=== PATIENT | female | born 1995 | race Asian ===

== ENCOUNTER 2016-09-27 15:40 | Inpatient (IN) | payer MEDICAID ==
[~2016-09-27] VITALS: Ht 162.6 cm; Wt 54.4 kg
[2016-09-27] MEDS ORDERED: DICLOXACILLIN500 M1 ORAL (16:05)
[2016-09-27 16:15] VITALS: BP 106/72
[2016-09-27 17:32] LABS: APPEARANCE,URINE CLEAR; BASOPHILS % (AUTO) 0.8 % (0.0-2.0); KETONES,URINE NEGATIVE (NEGATIVE); LEUKOCYTE ESTERASE ,URINE 1+ (NEGATIVE); LYMPHOCYTES % (AUTO) 16.7 % (20.0-45.0); MEAN CORPUSCULAR HEMOGLOBIN 30.3 PG (27.0-31.0); MEAN CORPUSCULAR HGB CONC 32.3 G/DL (32.0-36.0); MEAN CORPUSCULAR VOLUME 94 FL (80-99); MEAN PLATELET VOLUME 6.6 FL (6.5-10.1); NEUTROPHILS % (AUTO) 73.5 % (45.0-75.0); NITRITE,URINE NEGATIVE (NEGATIVE); PH,URINE 8 (4.5-8.0); PLATELET COUNT 294 K/UL (150-450); PROTEIN,URINE NEGATIVE (NEGATIVE); RED BLOOD COUNT 4.06 M/UL (4.20-5.40); RED CELL DISTRIBUTION WIDTH 11.9 % (11.6-14.8); UROBILINOGEN,URINE NORMAL MG/DL (0.0-1.0); WHITE BLOOD COUNT 8.5 K/UL (4.8-10.8)
[2016-09-27 17:39] LABS: BACTERIA,URINE FEW /HPF; RBC,URINE 0-2 /HPF (0 - 2); SQUAMOUS EPITHELIAL CELL,UR MODERATE /LPF (NONE/OCC)
[2016-09-27 17:47] LABS: ALANINE AMINOTRANSFERASE 22 U/L (3-33); ANION GAP 13 (5-15); ASPARTATE AMINO TRANSFERASE 21 U/L (5-40); CALCIUM 8.5 mg/dL (8.6-10.2); CARBON DIOXIDE 25 mEQ/L (20-30); CHLORIDE 97 mEQ/L (98-107); CREATININE 0.6 mg/dL (0.5-0.9); GLOMERULAR FILTRATION RATE > 60 mL/min (>60); HEMOLYSIS 12; POTASSIUM 3.7 mEQ/L (3.4-4.9); SODIUM 135 mEQ/L (135-145); TOTAL PROTEIN 6.8 g/dL (6.6-8.7)
[2016-09-27 18:15] VITALS: BP 113/71
--- NOTE | 2016-09-27 19:52 | History and Physical ---
History of Present Illness General Date patient seen: Sep 27, 2016 Time patient seen: 19:45 Reason for Hospitalization: Skin Rash/Abscess Present Illness HPI Pt is a 21 yo F with no significant pmh who p/w worsening R breast erythema and pain. Pt had a breast augmentation done 5 1/2 months ago, and was lost to f/u. Pt recently went to [place] and was prescribed po abx with no improvement. Sx started with erythema and then she developed swelling, and pain and purulent discharge from incision site of breast augmentation. no nipple discharge, f/c, cp, sob, n/v/d. No but bites/trauma. pt is 14 weeks and reports that she has scheduled an for this pt claims that she has significant amount of vaginal discharge; non malodorous, white and thick; has had 3 bouts of BV, last treated 3 months ago. pt also reports sob and wheezing. Allergies: Coded Allergies: No Known Allergies (Unverified , 09/27/16) Medication History Scheduled Dicloxacillin Sodium (Dicloxacillin Sodium), 500 MG ORAL EVERY 6 HOURS, ( Reported) Patient History Healthcare decision maker Resuscitation status Advanced Directive on File Past Medical/Surgical History Past Medical/Surgical History: (1) H/O breast augmentation Family History Family History: Patient reports no known family medical history. Social History Social History: (1) No significant social history Review of Systems All Other Systems: negative except mentioned in HPI Physical Exam General Appearance: no apparent distress, alert HEENT: normocephalic, atraumatic, anicteric, mucous membranes moist, PERRL, EOMI, pharynx normal, no JVD Neck: non-tender, supple Respiratory/Chest: lungs clear, normal breath sounds, no respiratory distress, no accessory muscle use Breasts: other - R breast erythema and ttp Cardiovascular/Chest: normal peripheral pulses, normal rate, regular rhythm Abdomen: normal bowel sounds, soft, no mass, other - RLQ TTP Extremities: non-tender, normal inspection Skin Exam: warm/dry 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, no motor/sensory deficits, alert Musculoskeletal: normal muscle bulk Last 24 Hour Vital Signs Date Time Temp Pulse Resp B/P Pulse Ox O2 Delivery O2 Flow Rate FiO2 09/27/16 19:02 98.2 81 16 113/71 100 Room Air 09/27/16 18:15 81 16 113/71 100 Room Air 09/27/16 16:15 16 106/72 100 Room Air 09/27/16 16:05 98.2 86 16 106/72 100 Room Air Laboratory Tests Test 09/27/16 17:20 White Blood Count 8.5 K/UL (4.8-10.8) Red Blood Count 4.06 M/UL (4.20-5.40) L Hemoglobin 12.3 G/DL (12.0-16.0) Hematocrit 38.0 % (37.0-47.0) Mean Corpuscular Volume 94 FL (80-99) Mean Corpuscular Hemoglobin 30.3 PG (27.0-31.0) Mean Corpuscular Hemoglobin Concent 32.3 G/DL (32.0-36.0) Red Cell Distribution Width 11.9 % (11.6-14.8) Platelet Count 294 K/UL (150-450) Mean Platelet Volume 6.6 FL (6.5-10.1) Neutrophils (%) (Auto) 73.5 % (45.0-75.0) Lymphocytes (%) (Auto) 16.7 % (20.0-45.0) L Monocytes (%) (Auto) 8.0 % (1.0-10.0) Eosinophils (%) (Auto) 1.0 % (0.0-3.0) Basophils (%) (Auto) 0.8 % (0.0-2.0) Urine Color Pale yellow Urine Appearance Clear Urine pH 8 (4.5-8.0) Urine Specific [place] 1.015 (1.005-1.035) Urine Protein Negative (NEGATIVE) Urine Glucose (UA) Negative (NEGATIVE) Urine Ketones Negative (NEGATIVE) Urine Occult Blood Negative (NEGATIVE) Urine Nitrite Negative (NEGATIVE) Urine Bilirubin Negative (NEGATIVE) Urine Urobilinogen Normal MG/DL (0.0-1.0) Urine Leukocyte Esterase 1+ (NEGATIVE) H Urine RBC 0-2 /HPF (0 - 2) Urine WBC 2-4 /HPF (0 - 2) Urine Squamous Epithelial Cells Moderate /LPF (NONE/OCC) H Urine Bacteria Few /HPF (NONE) Urine HCG, Qualitative Positive Sodium Level 135 mEQ/L (135-145) Potassium Level 3.7 mEQ/L (3.4-4.9) Chloride Level 97 mEQ/L (98-107) L Carbon Dioxide Level 25 mEQ/L (20-30) Anion Gap 13 (5-15) Blood Urea Nitrogen 9 mg/dL (7-23) Creatinine 0.6 mg/dL (0.5-0.9) Estimat Glomerular Filtration Rate > 60 mL/min (>60) Glucose Level 91 mg/dL (74-106) Lactic Acid Level 0.60 mmol/L (0.66-2.22) L Calcium Level 8.5 mg/dL (8.6-10.2) L Total Bilirubin < 0.2 mg/dL (0.0-1.2) Aspartate Amino Transf (AST/SGOT) 21 U/L (5-40) Alanine Aminotransferase (ALT/SGPT) 22 U/L (3-33) Alkaline Phosphatase 65 U/L (35-104) Total Protein 6.8 g/dL (6.6-8.7) Albumin 3.5 g/dL (3.5-5.2) Globulin 3.3 g/dL Albumin/Globulin Ratio 1.0 (1.0-2.7) Height (Feet): 5 Height (Inches): 4.00 Weight (Pounds): 120 Medications Current Medications Medications (Trade) Dose Ordered Sig/Samra Route PRN Reason Start Time Stop Time Status Last Admin Dose Admin Acetaminophen (Tylenol) 650 mg Q4H PRN ORAL Mild Pain (Pain Scale 1-3) 09/27/16 19:30 10/27/16 19:29 Acetaminophen (Tylenol) 650 mg Q4H PRN ORAL fever 09/27/16 19:30 10/27/16 19:29 Dextrose (Dextrose 50%) STAT PRN IV Hypoglycemia 09/27/16 19:30 10/27/16 19:29 Assessment/Plan Problem List: (1) Abscess of right breast ICD Codes: N61.1 - Abscess of the breast and nipple SNOMED: 52908784 (2) H/O breast augmentation ICD Codes: Z98.82 - Breast implant status SNOMED: 07179534, 175272753 (3) ICD Codes: Z33.1 - state, incidental SNOMED: 87361427 Qualifiers: Qualified Codes: Z3A.14 - 14 weeks gestation of Status: progressing Assessment/Plan admit to med surg c/s ID start pt on Clindamycin IV daily dressing changes breast us pelvic u/s albuterol prn Sonal Larose M.D. Sep 27, 2016 19:52
[2016-09-27 20:00] VITALS: BP 110/74
[2016-09-27 20:04] VITALS: BP 107/66
[2016-09-27] MEDS ORDERED: Albuterol 90mcg Inhaler 8gm INH PRN (20:30)
[2016-09-27] MEDS: Clindamycin 600mg 50 ML IV SCH (22:03)
[2016-09-28] VITALS: BP 99/59
--- NOTE | 2016-09-28 00:04 | Emergency Room Report ---
History of Present Illness General Chief Complaint: Skin Rash/Abscess Source: Patient Present Illness HPI 21 YO Pt. presents to the ED sent by plastic surgeon with c/o pain, swelling, and erythema of the right breast about recent surgical incision for breast augmentation. She reports discharge, and increased temperature. Pt states her symptoms have progressed over the course of a week and a half. and was rx'd dicloxacillin with no improvement from oral medications. Denies fevers, reports chills. Pt. states breast augmentation surgery was performed 5.5 months ago. PT reports drainage from the incision site. Pt. states prior to symptoms incision site appeared healed. pt. denies recent trauma to the right breast, denies palpable lymph nodes. Denies CP, Palpitations, LOC, AMS, dizziness, Changes in Vision, Sensation, paresthesias, or a sudden severe headache. Pt states she is three weeks , however has appointment for this week. Allergies: Coded Allergies: No Known Allergies (Unverified , 09/27/16) Patient History Past Medical History: see triage record Past Surgical History: none Pertinent Family History: none Now: No - 3 months : 1 Immunizations: UTD Reviewed Nursing Documentation: PMH: Agreed, PSxH: Agreed Nursing Documentation-PMH Past Medical History: No Stated History Hx Cardiac Problems: No Hx Cancer: No Hx Gastrointestinal Problems: No Hx Neurological Problems: No Hx Neurologic Surgery: No Hx Brain Shunt: No Review of Systems All Other Systems: negative except mentioned in HPI Physical Exam Vital Signs Date Time Temp Pulse Resp B/P Pulse Ox O2 Delivery O2 Flow Rate FiO2 09/27/16 16:05 98.2 86 16 106/72 100 Room Air Sp02 EP Interpretation: reviewed, normal General Appearance: no apparent distress, alert, GCS 15, non-toxic Head: normocephalic, atraumatic Eyes: bilateral eye PERRL, bilateral eye normal inspection ENT: hearing grossly normal, normal pharynx, no angioedema, normal voice Neck: full range of motion, supple/symm/no masses Respiratory: chest non-tender, lungs clear, normal breath sounds, speaking full sentences Cardiovascular #1: regular rate, rhythm, no edema Gastrointestinal: non tender, soft, no guarding, no rebound Rectal: deferred Genitourinary: normal inspection, no CVA tenderness Musculoskeletal: back normal, gait/station normal, normal range of motion, no calf tenderness, tender - significant TTp to the right breast mainly about the nipple. Neurologic: alert, oriented x3, responsive, motor strength/tone normal, sensory intact, speech normal Psychiatric: judgement/insight normal, memory normal, mood/affect normal, no suicidal/homicidal ideation Skin: normal color, no rash, warm/dry, well hydrated, other - erythema, TTp, discharge noted from the incision site of the right nipple, surrounding erythema and increased temperature to palpation noted, no LAD. Lymphatic: no adenopathy Medical Decision Making PA Attestation Dr. Miles is my supervising Physician whom patient management has been discussed with. Diagnostic Impression: Primary Impression: Rash and other nonspecific skin eruption Additional Impression: Cellulitis of breast ER Course Pt. presents to the ED c/o pain, swelling, and erythema of the right breast about recent surgical incision for breast augmentation. She reports discharge, and increased temperature. Ddx considered but are not limited to cellulitis, breast abscess, sepsis, dehiscence. Vital signs: are WNL, pt. is afebrile H&PE are most consistent with post surgical cellulitis, with possible right breast abscess. ORDERS: -CBC -CMP -lactic acid: -Blood Cultures x 2 -EKG: ED INTERVENTIONS: -1 gram Rocephin IV DISPOSITION: at this time pt. will be admitted to Dr. Nj for cellultis possible breast abscess. Dr. Nj agreed to admit the pt. and to continue pt. care management. Labs Test 09/27/16 17:20 White Blood Count 8.5 K/UL (4.8-10.8) Red Blood Count 4.06 M/UL (4.20-5.40) Hemoglobin 12.3 G/DL (12.0-16.0) Hematocrit 38.0 % (37.0-47.0) Mean Corpuscular Volume 94 FL (80-99) Mean Corpuscular Hemoglobin 30.3 PG (27.0-31.0) Mean Corpuscular Hemoglobin Concent 32.3 G/DL (32.0-36.0) Red Cell Distribution Width 11.9 % (11.6-14.8) Platelet Count 294 K/UL (150-450) Mean Platelet Volume 6.6 FL (6.5-10.1) Neutrophils (%) (Auto) 73.5 % (45.0-75.0) Lymphocytes (%) (Auto) 16.7 % (20.0-45.0) Monocytes (%) (Auto) 8.0 % (1.0-10.0) Eosinophils (%) (Auto) 1.0 % (0.0-3.0) Basophils (%) (Auto) 0.8 % (0.0-2.0) Urine Color Pale yellow Urine Appearance Clear Urine pH 8 (4.5-8.0) Urine Specific [place] 1.015 (1.005-1.035) Urine Protein Negative (NEGATIVE) Urine Glucose (UA) Negative (NEGATIVE) Urine Ketones Negative (NEGATIVE) Urine Occult Blood Negative (NEGATIVE) Urine Nitrite Negative (NEGATIVE) Urine Bilirubin Negative (NEGATIVE) Urine Urobilinogen Normal MG/DL (0.0-1.0) Urine Leukocyte Esterase 1+ (NEGATIVE) Urine RBC 0-2 /HPF (0 - 2) Urine WBC 2-4 /HPF (0 - 2) Urine Squamous Epithelial Cells Moderate /LPF (NONE/OCC) Urine Bacteria Few /HPF (NONE) Urine HCG, Qualitative Positive Sodium Level 135 mEQ/L (135-145) Potassium Level 3.7 mEQ/L (3.4-4.9) Chloride Level 97 mEQ/L (98-107) Carbon Dioxide Level 25 mEQ/L (20-30) Anion Gap 13 (5-15) Blood Urea Nitrogen 9 mg/dL (7-23) Creatinine 0.6 mg/dL (0.5-0.9) Estimat Glomerular Filtration Rate > 60 mL/min (>60) Glucose Level 91 mg/dL (74-106) Lactic Acid Level 0.60 mmol/L (0.66-2.22) Calcium Level 8.5 mg/dL (8.6-10.2) Total Bilirubin < 0.2 mg/dL (0.0-1.2) Aspartate Amino Transf (AST/SGOT) 21 U/L (5-40) Alanine Aminotransferase (ALT/SGPT) 22 U/L (3-33) Alkaline Phosphatase 65 U/L (35-104) Total Protein 6.8 g/dL (6.6-8.7) Albumin 3.5 g/dL (3.5-5.2) Globulin 3.3 g/dL Albumin/Globulin Ratio 1.0 (1.0-2.7) Last Vital Signs Date Time Temp Pulse Resp B/P Pulse Ox O2 Delivery O2 Flow Rate FiO2 09/27/16 20:04 97.9 71 20 107/66 99 Room Air Disposition: ADMITTED INPATIENT Condition: Stable Referrals: NOT CHOSEN IPA/,REFERRING (PCP) Sarita Fontana Sep 28, 2016 00:04
[2016-09-28 04:00] VITALS: BP 92/53
[2016-09-28] MEDS: Clindamycin 600mg 50 ML IV SCH ×4 (05:25→23:51)
[2016-09-28 07:30] LABS: BASOPHILS % (AUTO) 0.7 % (0.0-2.0); EOSINOPHILS % (AUTO) 1.7 % (0.0-3.0); MEAN CORPUSCULAR HEMOGLOBIN 30.4 PG (27.0-31.0); MEAN CORPUSCULAR HGB CONC 31.9 G/DL (32.0-36.0); MEAN CORPUSCULAR VOLUME 95 FL (80-99); MEAN PLATELET VOLUME 6.6 FL (6.5-10.1); MONOCYTES % (AUTO) 8.4 % (1.0-10.0); NEUTROPHILS % (AUTO) 59.2 % (45.0-75.0); PLATELET COUNT 303 K/UL (150-450); RED BLOOD COUNT 3.81 M/UL (4.20-5.40); RED CELL DISTRIBUTION WIDTH 11.7 % (11.6-14.8); WHITE BLOOD COUNT 6.7 K/UL (4.8-10.8)
[2016-09-28 08:00] VITALS: BP 107/56
[2016-09-28 08:12] LABS: ANION GAP 14 (5-15); CALCIUM 8.5 mg/dL (8.6-10.2); CARBON DIOXIDE 24 mEQ/L (20-30); CHLORIDE 100 mEQ/L (98-107); CREATININE 0.6 mg/dL (0.5-0.9); GLOMERULAR FILTRATION RATE > 60 mL/min (>60); HEMOLYSIS 3; POTASSIUM 4.1 mEQ/L (3.4-4.9); SODIUM 138 mEQ/L (135-145)
--- NOTE | 2016-09-28 10:38 | General Progress Note ---
Subjective Date patient seen: Sep 28, 2016 Time patient seen: 10:36 ROS Limited/Unobtainable: No Allergies: Coded Allergies: No Known Allergies (Unverified , 09/27/16) Subjective minimal pain, good appitite Objective Last 24 Hour Vital Signs Date Time Temp Pulse Resp B/P Pulse Ox O2 Delivery O2 Flow Rate FiO2 09/28/16 04:00 97.5 79 20 92/53 98 Room Air 09/28/16 00:00 97.0 75 19 99/59 99 Room Air 09/27/16 20:04 97.9 71 20 107/66 99 Room Air 09/27/16 20:00 98.2 84 20 110/74 99 Room Air 09/27/16 19:02 98.2 81 16 113/71 100 Room Air 09/27/16 18:15 81 16 113/71 100 Room Air 09/27/16 16:15 16 106/72 100 Room Air 09/27/16 16:05 98.2 86 16 106/72 100 Room Air Intake and Output 09/27/16 09/28/16 19:00 07:00 Intake Total 0 ml 1070 ml Balance 0 ml 1070 ml Intake Oral 0 ml 920 ml IV Total 150 ml # Voids 3 Laboratory Tests 09/27/16 17:20: White Blood Count 8.5, Red Blood Count 4.06L, Hemoglobin 12.3, Hematocrit 38.0, Mean Corpuscular Volume 94, Mean Corpuscular Hemoglobin 30.3, Mean Corpuscular Hemoglobin Concent 32.3, Red Cell Distribution Width 11.9, Platelet Count 294, Mean Platelet Volume 6.6, Neutrophils (%) (Auto) 73.5, Lymphocytes (%) (Auto) 16.7L, Monocytes (%) (Auto) 8.0, Eosinophils (%) (Auto) 1.0, Basophils (%) (Auto ) 0.8, Urine Color Pale yellow, Urine Appearance Clear, Urine pH 8, Urine Specific [place] 1.015, Urine Protein Negative, Urine Glucose (UA) Negative, Urine Ketones Negative, Urine Occult Blood Negative, Urine Nitrite Negative, Urine Bilirubin Negative, Urine Urobilinogen Normal, Urine Leukocyte Esterase 1+ H, Urine RBC 0-2, Urine WBC 2-4, Urine Squamous Epithelial Cells ModerateH, Urine Bacteria Few, Urine HCG, Qualitative Positive, Sodium Level 135, Potassium Level 3.7, Chloride Level 97L, Carbon Dioxide Level 25, Anion Gap 13, Blood Urea Nitrogen 9, Creatinine 0.6, Estimat Glomerular Filtration Rate > 60, Glucose Level 91, Lactic Acid Level 0.60L, Calcium Level 8.5L, Total Bilirubin < 0.2, Aspartate Amino Transf (AST/SGOT) 21, Alanine Aminotransferase (ALT/SGPT ) 22, Alkaline Phosphatase 65, Total Protein 6.8, Albumin 3.5, Globulin 3.3, Albumin/Globulin Ratio 1.0 09/28/16 06:25: White Blood Count 6.7, Red Blood Count 3.81L, Hemoglobin 11.6L, Hematocrit 36.3L , Mean Corpuscular Volume 95, Mean Corpuscular Hemoglobin 30.4, Mean Corpuscular Hemoglobin Concent 31.9L, Red Cell Distribution Width 11.7, Platelet Count 303, Mean Platelet Volume 6.6, Neutrophils (%) (Auto) 59.2, Lymphocytes (%) (Auto) 30.0, Monocytes (%) (Auto) 8.4, Eosinophils (%) (Auto) 1.7, Basophils (%) (Auto) 0.7, Sodium Level 138, Potassium Level 4.1, Chloride Level 100, Carbon Dioxide Level 24, Anion Gap 14, Blood Urea Nitrogen 7, Creatinine 0.6, Estimat Glomerular Filtration Rate > 60, Glucose Level 75, Calcium Level 8.5L Height (Feet): 5 Height (Inches): 4.00 Weight (Pounds): 120 Objective right breast still with erythema. minimal seropurulent drainage. packing in place. Implant not exposed GIOVANA BRANDT Sep 28, 2016 10:38
[2016-09-28 12:00] VITALS: BP 110/60
--- NOTE | 2016-09-28 12:33 | Diagnostic Imaging Report ---
Indications: Right breast swelling and open wound Technique: Real-time grayscale and color Doppler imaging of right breast Findings: Comparison: None There is a well-circumscribed ovoid area of heterogeneously decreased echogenicity subjacent to skin changes described, measuring approximately 3 x 1.5 cm. This area demonstrates moderate vascularity. No discrete mass or fluid collection identified. Impression: 3 cm ovoid focus of edema and increased vascularity without obvious discrete hematoma or abscess, subjacent to area of clinical concern.
--- NOTE | 2016-09-28 14:54 | Diagnostic Imaging Report ---
Indication:. Vaginal bleeding pain Technique: Grayscale and duplex Doppler imaging of the pelvis performed utilizing a transabdominal scan and endovaginal scan. Comparison: None Findings: Single living intrauterine demonstrated. Based on sonographic criteria gestational age is 14 weeks 5 days. anatomy not assessed. Amniotic fluid appears appropriate. Placenta is posterior. Cervix not well seen. Fetus measurements: Biparietal diameter 30.7 mm, 15 weeks 5 days Head circumference 117.4 mm, 15 weeks 5 days Abdominal circumference 84.6 mm, 14 weeks 5 days Femur length 16.2 mm, 14 weeks 5 days. Impression: Limited real-time exam demonstrating single living IUP 14 weeks 5 days gestational age. anatomy not assessed. Note: A negative ultrasound evaluation does not insure well-being or positive outcome for the . monitoring including a nonstress test may be needed and clinical evaluation by [employer] is highly recommended.
[2016-09-28 16:00] VITALS: BP 95/51
--- NOTE | 2016-09-28 16:33 | General Progress Note ---
Assessment/Plan Problem List: (1) Abscess of right breast ICD Codes: N61.1 - Abscess of the breast and nipple SNOMED: 72562813 (2) H/O breast augmentation ICD Codes: Z98.82 - Breast implant status SNOMED: 20671632, 133253393 (3) ICD Codes: Z33.1 - state, incidental SNOMED: 52225984 Qualifiers: Qualified Codes: Z3A.14 - 14 weeks gestation of Assessment/Plan admit to med surg c/s ID start pt on Clindamycin IV daily dressing changes breast us with no e/o abscess pelvic u/s with no abnormal findings albuterol prn Subjective Date patient seen: Sep 28, 2016 Time patient seen: 16:32 Allergies: Coded Allergies: No Known Allergies (Unverified , 09/27/16) Subjective no acute events o/n Objective Last 24 Hour Vital Signs Date Time Temp Pulse Resp B/P Pulse Ox O2 Delivery O2 Flow Rate FiO2 09/28/16 12:00 97.8 74 19 110/60 99 Room Air 09/28/16 08:00 97.7 76 18 107/56 99 Room Air 09/28/16 04:00 97.5 79 20 92/53 98 Room Air 09/28/16 00:00 97.0 75 19 99/59 99 Room Air 09/27/16 20:04 97.9 71 20 107/66 99 Room Air 09/27/16 20:00 98.2 84 20 110/74 99 Room Air 09/27/16 19:02 98.2 81 16 113/71 100 Room Air 09/27/16 18:15 81 16 113/71 100 Room Air Intake and Output 09/27/16 09/28/16 19:00 07:00 Intake Total 0 ml 1070 ml Balance 0 ml 1070 ml Intake Oral 0 ml 920 ml IV Total 150 ml # Voids 3 Laboratory Tests 09/27/16 17:20: White Blood Count 8.5, Red Blood Count 4.06L, Hemoglobin 12.3, Hematocrit 38.0, Mean Corpuscular Volume 94, Mean Corpuscular Hemoglobin 30.3, Mean Corpuscular Hemoglobin Concent 32.3, Red Cell Distribution Width 11.9, Platelet Count 294, Mean Platelet Volume 6.6, Neutrophils (%) (Auto) 73.5, Lymphocytes (%) (Auto) 16.7L, Monocytes (%) (Auto) 8.0, Eosinophils (%) (Auto) 1.0, Basophils (%) (Auto ) 0.8, Urine Color Pale yellow, Urine Appearance Clear, Urine pH 8, Urine Specific [place] 1.015, Urine Protein Negative, Urine Glucose (UA) Negative, Urine Ketones Negative, Urine Occult Blood Negative, Urine Nitrite Negative, Urine Bilirubin Negative, Urine Urobilinogen Normal, Urine Leukocyte Esterase 1+ H, Urine RBC 0-2, Urine WBC 2-4, Urine Squamous Epithelial Cells ModerateH, Urine Bacteria Few, Urine HCG, Qualitative Positive, Sodium Level 135, Potassium Level 3.7, Chloride Level 97L, Carbon Dioxide Level 25, Anion Gap 13, Blood Urea Nitrogen 9, Creatinine 0.6, Estimat Glomerular Filtration Rate > 60, Glucose Level 91, Lactic Acid Level 0.60L, Calcium Level 8.5L, Total Bilirubin < 0.2, Aspartate Amino Transf (AST/SGOT) 21, Alanine Aminotransferase (ALT/SGPT ) 22, Alkaline Phosphatase 65, Total Protein 6.8, Albumin 3.5, Globulin 3.3, Albumin/Globulin Ratio 1.0 09/28/16 06:25: White Blood Count 6.7, Red Blood Count 3.81L, Hemoglobin 11.6L, Hematocrit 36.3L , Mean Corpuscular Volume 95, Mean Corpuscular Hemoglobin 30.4, Mean Corpuscular Hemoglobin Concent 31.9L, Red Cell Distribution Width 11.7, Platelet Count 303, Mean Platelet Volume 6.6, Neutrophils (%) (Auto) 59.2, Lymphocytes (%) (Auto) 30.0, Monocytes (%) (Auto) 8.4, Eosinophils (%) (Auto) 1.7, Basophils (%) (Auto) 0.7, Sodium Level 138, Potassium Level 4.1, Chloride Level 100, Carbon Dioxide Level 24, Anion Gap 14, Blood Urea Nitrogen 7, Creatinine 0.6, Estimat Glomerular Filtration Rate > 60, Glucose Level 75, Calcium Level 8.5L Height (Feet): 5 Height (Inches): 4.00 Weight (Pounds): 120 Objective General Appearance: no apparent distress, alert HEENT: normocephalic, atraumatic, anicteric, mucous membranes moist, PERRL, EOMI, pharynx normal, no JVD Neck: non-tender, supple Respiratory/Chest: lungs clear, normal breath sounds, no respiratory distress, no accessory muscle use Breasts: other - R breast erythema and ttp Cardiovascular/Chest: normal peripheral pulses, normal rate, regular rhythm Abdomen: normal bowel sounds, soft, no mass, other - RLQ TTP Extremities: non-tender, normal inspection Skin Exam: warm/dry 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 Sep 28, 2016 16:33
--- NOTE | 2016-09-28 17:27 | Consultation ---
Consult Note Consult Note gynecologist Assessment/Plan Consult : 14 weeks, desire termination, admitted for breast abbess HPI Pt is a 21 yo F with no significant pmh who p/w worsening R breast erythema and pain. Pt had a breast augmentation done 5 1/2 months ago, and was lost to f/u. Pt recently went to [place] and was prescribed po abx with no improvement. Sx started with erythema and then she developed swelling, and pain and purulent discharge from incision site of breast augmentation. no nipple discharge, f/c, cp, sob, n/v/d. No but bites/trauma. pt is 14 weeks and reports that she has scheduled an for this pt claims that she has significant amount of vaginal discharge; non malodorous, white and thick; has had 3 bouts of BV, last treated 3 months ago. pt also reports sob and wheezing. Allergies: Coded Allergies: No Known Allergies (Unverified , 09/27/16) Medication History Scheduled Dicloxacillin Sodium (Dicloxacillin Sodium), 500 MG ORAL EVERY 6 HOURS, ( Reported) Patient History Healthcare decision maker Resuscitation status Advanced Directive on File Past Medical/Surgical History Past Medical/Surgical History: (1) H/O breast augmentation Family History Family History: Patient reports no known family medical history. Social History Social History: (1) No significant social history ROS Review of Systems All Other Systems: negative except mentioned in HPI Physical Exam Physical Exam General Appearance: no apparent distress, alert HEENT: normocephalic, atraumatic, anicteric, mucous membranes moist, PERRL, EOMI, pharynx normal, no JVD Neck: non-tender, supple Respiratory/Chest: lungs clear, normal breath sounds, no respiratory distress, no accessory muscle use Breasts: other - R breast erythema and ttp Cardiovascular/Chest: normal peripheral pulses, normal rate, regular rhythm Abdomen: normal bowel sounds, soft, no mass, other - RLQ TTP Extremities: non-tender, normal inspection Skin Exam: warm/dry 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, no motor/sensory deficits, alert Musculoskeletal: normal muscle bulk Last 24 Hour Vital Signs Date Time Temp Pulse Resp B/P Pulse Ox O2 Delivery O2 Flow Rate FiO2 09/27/16 19:02 98.2 81 16 113/71 100 Room Air 1/9/17 18:15 81 16 113/71 100 Room Air 09/27/16 16:15 16 106/72 100 Room Air 09/27/16 16:05 98.2 86 16 106/72 100 Room Air Laboratory Tests Test 09/27/16 17:20 White Blood Count 8.5 K/UL (4.8-10.8) Red Blood Count 4.06 M/UL (4.20-5.40) L Hemoglobin 12.3 G/DL (12.0-16.0) Hematocrit 38.0 % (37.0-47.0) Mean Corpuscular Volume 94 FL (80-99) Mean Corpuscular Hemoglobin 30.3 PG (27.0-31.0) Mean Corpuscular Hemoglobin Concent 32.3 G/DL (32.0-36.0) Red Cell Distribution Width 11.9 % (11.6-14.8) Platelet Count 294 K/UL (150-450) Mean Platelet Volume 6.6 FL (6.5-10.1) Neutrophils (%) (Auto) 73.5 % (45.0-75.0) Lymphocytes (%) (Auto) 16.7 % (20.0-45.0) L Monocytes (%) (Auto) 8.0 % (1.0-10.0) Eosinophils (%) (Auto) 1.0 % (0.0-3.0) Basophils (%) (Auto) 0.8 % (0.0-2.0) Urine Color Pale yellow Urine Appearance Clear Urine pH 8 (4.5-8.0) Urine Specific [place] 1.015 (1.005-1.035) Urine Protein Negative (NEGATIVE) Urine Glucose (UA) Negative (NEGATIVE) Urine Ketones Negative (NEGATIVE) Urine Occult Blood Negative (NEGATIVE) Urine Nitrite Negative (NEGATIVE) Urine Bilirubin Negative (NEGATIVE) Urine Urobilinogen Normal MG/DL (0.0-1.0) Urine Leukocyte Esterase 1+ (NEGATIVE) H Urine RBC 0-2 /HPF (0 - 2) Urine WBC 2-4 /HPF (0 - 2) Urine Squamous Epithelial Cells Moderate /LPF (NONE/OCC) H Urine Bacteria Few /HPF (NONE) Urine HCG, Qualitative Positive Sodium Level 135 mEQ/L (135-145) Potassium Level 3.7 mEQ/L (3.4-4.9) Chloride Level 97 mEQ/L (98-107) L Carbon Dioxide Level 25 mEQ/L (20-30) Anion Gap 13 (5-15) Blood Urea Nitrogen 9 mg/dL (7-23) Creatinine 0.6 mg/dL (0.5-0.9) Estimat Glomerular Filtration Rate > 60 mL/min (>60) Glucose Level 91 mg/dL (74-106) Lactic Acid Level 0.60 mmol/L (0.66-2.22) L Calcium Level 8.5 mg/dL (8.6-10.2) L Total Bilirubin < 0.2 mg/dL (0.0-1.2) Aspartate Amino Transf (AST/SGOT) 21 U/L (5-40) Alanine Aminotransferase (ALT/SGPT) 22 U/L (3-33) Alkaline Phosphatase 65 U/L (35-104) Total Protein 6.8 g/dL (6.6-8.7) Albumin 3.5 g/dL (3.5-5.2) Globulin 3.3 g/dL Albumin/Globulin Ratio 1.0 (1.0-2.7) Height (Feet): 5 Height (Inches): 4.00 Weight (Pounds): 120 Medications Current Medications Medications (Trade) Dose Ordered Sig/Samra Route PRN Reason Start Time Stop Time Status Last Admin Dose Admin Acetaminophen (Tylenol) 650 mg Q4H PRN ORAL Mild Pain (Pain Scale 1-3) 09/27/16 19:30 10/27/16 19:29 Acetaminophen (Tylenol) 650 mg Q4H PRN ORAL fever 09/27/16 19:30 10/27/16 19:29 Dextrose (Dextrose 50%) STAT PRN IV Hypoglycemia 09/27/16 19:30 10/27/16 19:29 Assessment/Plan 21 year old patient , admitted for breast abcess, IUP 14 weeks 1) vaginal culters sent 2)US IUP + FHT 3) [facility] [phone], and dr cummings info given OB signing off KELLI Pérez Sep 28, 2016 17:27
[2016-09-28 20:00] VITALS: BP 101/63
--- NOTE | 2016-09-28 21:32 | Infectious Diseases Prog Note ---
Assessment/Plan Assessment/Plan Full consult to follow: A) 1) right breast abscess, s/p I/D 2) hx breast augmentation 3) 14 weeks P) 1) agree with clindamycin - safe, category 2 in 2) check outside surgical wound culture 3) continue treatment per primary, surgery and clinical informaticist 4) thank you Subjective Allergies: Coded Allergies: No Known Allergies (Unverified , 09/27/16) Objective Vital Signs Last 24 Hour Vital Signs Date Time Temp Pulse Resp B/P Pulse Ox O2 Delivery O2 Flow Rate FiO2 09/28/16 20:00 98.1 73 16 101/63 99 Room Air 09/28/16 19:54 97.7 09/28/16 16:00 97.7 69 20 95/51 99 Room Air 09/28/16 12:00 97.8 74 19 110/60 99 Room Air 09/28/16 08:00 97.7 76 18 107/56 99 Room Air 09/28/16 04:00 97.5 79 20 92/53 98 Room Air 09/28/16 00:00 97.0 75 19 99/59 99 Room Air Height (Feet): 5 Height (Inches): 4.00 Weight (Pounds): 120 Laboratory Tests Test 09/28/16 06:25 09/28/16 16:22 White Blood Count 6.7 K/UL (4.8-10.8) Red Blood Count 3.81 M/UL (4.20-5.40) L Hemoglobin 11.6 G/DL (12.0-16.0) L Hematocrit 36.3 % (37.0-47.0) L Mean Corpuscular Volume 95 FL (80-99) Mean Corpuscular Hemoglobin 30.4 PG (27.0-31.0) Mean Corpuscular Hemoglobin Concent 31.9 G/DL (32.0-36.0) L Red Cell Distribution Width 11.7 % (11.6-14.8) Platelet Count 303 K/UL (150-450) Mean Platelet Volume 6.6 FL (6.5-10.1) Neutrophils (%) (Auto) 59.2 % (45.0-75.0) Lymphocytes (%) (Auto) 30.0 % (20.0-45.0) Monocytes (%) (Auto) 8.4 % (1.0-10.0) Eosinophils (%) (Auto) 1.7 % (0.0-3.0) Basophils (%) (Auto) 0.7 % (0.0-2.0) Sodium Level 138 mEQ/L (135-145) Potassium Level 4.1 mEQ/L (3.4-4.9) Chloride Level 100 mEQ/L (98-107) Carbon Dioxide Level 24 mEQ/L (20-30) Anion Gap 14 (5-15) Blood Urea Nitrogen 7 mg/dL (7-23) Creatinine 0.6 mg/dL (0.5-0.9) Estimat Glomerular Filtration Rate > 60 mL/min (>60) Glucose Level 75 mg/dL (74-106) Calcium Level 8.5 mg/dL (8.6-10.2) L Urine Opiates Screen Negative (NEGATIVE) Urine Barbiturates Screen Negative (NEGATIVE) Phencyclidine (PCP) Screen Negative (NEGATIVE) Urine Amphetamines Screen Negative (NEGATIVE) Urine Benzodiazepines Screen Negative (NEGATIVE) Urine Cocaine Screen Negative (NEGATIVE) Urine Marijuana (THC) Screen Positive (NEGATIVE) H Current Medications Medications (Trade) Dose Ordered Sig/Samra Route PRN Reason Start Time Stop Time Status Last Admin Dose Admin Acetaminophen (Tylenol) 650 mg Q4H PRN ORAL Mild Pain (Pain Scale 1-3) 09/27/16 19:30 10/27/16 19:29 09/28/16 18:55 Acetaminophen (Tylenol) 650 mg Q4H PRN ORAL fever 09/27/16 19:30 10/27/16 19:29 Albuterol Sulfate 2 puff 2 puff Q4H PRN INH Shortness of Breath 09/27/16 20:30 10/27/16 20:29 Clindamycin HCl/ Dextrose (Cleocin 600mg) 50 ml @ 100 mls/hr EVERY 8 HOURS IV 09/28/16 22:00 10/05/16 21:59 UNV Dextrose (Dextrose 50%) STAT PRN IV Hypoglycemia 09/27/16 19:30 10/27/16 19:29 Sodium Chloride 1,000 ml @ 75 mls/hr [id number] IV 09/28/16 17:00 10/28/16 16:59 09/28/16 17:36 AXEL CANALES Sep 28, 2016 21:32
[2016-09-29] VITALS: BP 100/56
[2016-09-29 04:00] VITALS: BP 106/60
[2016-09-29] MEDS: Clindamycin 600mg 50 ML IV SCH ×3 (06:03→22:00)
[2016-09-29 08:38] VITALS: BP 101/65
[2016-09-29 11:59] VITALS: BP 100/57
--- NOTE | 2016-09-29 12:39 | General Progress Note ---
Assessment/Plan Status Narrative right breast cellulitis and abscess- resolving. U/S negative for implant involvement. cellulitis improved Assessment/Plan OK for D/C on oral ABX per PMD. pt will follow up with me this tuesday for dressing change Subjective Date patient seen: Sep 29, 2016 Allergies: Coded Allergies: No Known Allergies (Unverified , 09/27/16) Subjective minimal pain, good appitite Objective Last 24 Hour Vital Signs Date Time Temp Pulse Resp B/P Pulse Ox O2 Delivery O2 Flow Rate FiO2 09/29/16 11:59 98.2 84 20 100/57 98 Room Air 09/29/16 09:41 97.9 09/29/16 08:38 97.9 84 20 101/65 97 Room Air 09/29/16 04:00 97.6 65 18 106/60 98 Room Air 09/29/16 00:00 97.2 63 18 100/56 99 Room Air 09/28/16 20:00 98.1 73 16 101/63 99 Room Air 09/28/16 16:00 97.7 69 20 95/51 99 Room Air Intake and Output 09/28/16 09/29/16 18:59 06:59 Intake Total 500 ml 1520 ml Balance 500 ml 1520 ml Intake Oral 350 ml 560 ml IV Total 150 ml 960 ml # Voids 1 2 Laboratory Tests 09/28/16 16:22: Urine Opiates Screen Negative, Urine Barbiturates Screen Negative, Phencyclidine (PCP) Screen Negative, Urine Amphetamines Screen Negative, Urine Benzodiazepines Screen Negative, Urine Cocaine Screen Negative, Urine Marijuana (THC) Screen PositiveH Height (Feet): 5 Height (Inches): 4.00 Weight (Pounds): 120 Objective right breast still with erythema- resolving minimal serous drainage. packing in place. Implant not exposed GIOVANA BRANDT Sep 29, 2016 12:39
[2016-09-29 16:35] VITALS: BP 133/62
[2016-09-29] MEDS ORDERED: Tubing IV Secondary IV ONE ×2 (18:35→18:36)
[2016-09-29] MEDS ORDERED: NS 275ml ONE (18:35)
--- NOTE | 2016-09-29 18:35 | Infectious Diseases Prog Note ---
Assessment/Plan Assessment/Plan Full consult dictated: A) 1) right breast abscess, s/p I/D - clinically improving, surgery noted reviewed 2) hx breast augmentation 3) 14 weeks P) 1) continue clindamycin - safe, category 2 in 2) await outside surgical wound culture, [place] wound culture pending 3) continue treatment per primary, surgery and chair caner 4) will f/u Subjective Constitutional: Denies: fever HEENT: Denies: congestion Respiratory: Denies: shortness of breath Cardiovascular: Denies: chest pain Gastrointestinal/Abdominal: Denies: nausea, vomiting Genitourinary: Denies: dysuria Allergies: Coded Allergies: No Known Allergies (Unverified , 09/27/16) Objective Vital Signs Last 24 Hour Vital Signs Date Time Temp Pulse Resp B/P Pulse Ox O2 Delivery O2 Flow Rate FiO2 09/29/16 16:35 98.0 84 20 133/62 98 Room Air 09/29/16 12:58 97.9 09/29/16 11:59 98.2 84 20 100/57 98 Room Air 09/29/16 09:41 97.9 09/29/16 08:38 97.9 84 20 101/65 97 Room Air 09/29/16 04:00 97.6 65 18 106/60 98 Room Air 09/29/16 00:00 97.2 63 18 100/56 99 Room Air 09/28/16 20:00 98.1 73 16 101/63 99 Room Air Height (Feet): 5 Height (Inches): 4.00 Weight (Pounds): 120 General Appearance: no acute distress HEENT: normocephalic, atraumatic, anicteric, mucous membranes moist, PERRL Respiratory/Chest: lungs clear, normal breath sounds, no respiratory distress, no accessory muscle use Cardiovascular: normal rate, regular rhythm, no gallop/murmur Abdomen: normal bowel sounds, soft, non tender, no organomegaly, non distended Microbiology Date/Time Source Procedure Growth Status 09/27/16 17:20 Blood Blood Culture - Preliminary NO GROWTH AFTER 24 HOURS Resulted 09/27/16 16:45 Blood Blood Culture - Preliminary NO GROWTH AFTER 24 HOURS Resulted Current Medications Medications (Trade) Dose Ordered Sig/Samra Route PRN Reason Start Time Stop Time Status Last Admin Dose Admin Acetaminophen (Tylenol) 650 mg Q4H PRN ORAL Mild Pain (Pain Scale 1-3) 09/27/16 19:30 10/27/16 19:29 09/29/16 08:42 Acetaminophen (Tylenol) 650 mg Q4H PRN ORAL fever 09/27/16 19:30 10/27/16 19:29 Albuterol Sulfate 2 puff 2 puff Q4H PRN INH Shortness of Breath 09/27/16 20:30 10/27/16 20:29 Clindamycin HCl/ Dextrose (Cleocin 600mg) 50 ml @ 100 mls/hr EVERY 8 HOURS IV 09/29/16 00:00 10/06/16 00:00 09/29/16 13:22 Dextrose (Dextrose 50%) STAT PRN IV Hypoglycemia 09/27/16 19:30 10/27/16 19:29 Sodium Chloride 1,000 ml @ 75 mls/hr [id number] IV 09/28/16 17:00 10/28/16 16:59 09/29/16 09:00 AXEL CANALES Sep 29, 2016 18:35
--- NOTE | 2016-09-29 19:43 | Discharge Summary ---
Discharge Summary Hospital Course Date of Admission Sep 27, 2016 at 17:09 Date of Discharge 09/29/16 Admitting Diagnosis right breast abscess STANISLAW Ren is a 21 year old female who was admitted on Sep 27, 2016 at 17:09 for Right Breast Abscess Consultations ID and gen surgery Hospital Course admit to med surg pt s/p I and D by surgery as o/p just prior to admission blood cx ntd c/s ID c/s ob-correctional program officer; G and C cx done start pt on Clindamycin IV daily dressing changes breast us with no e/o abscess pelvic u/s with no abnormal findings Discharge Condition Upon Discharge: stable Discharge Disposition Patient was discharged to home Discharge Diagnoses: (1) Abscess of right breast (2) (3) Cellulitis of breast (4) H/O breast augmentation Sonal Larose M.D. Sep 29, 2016 19:43
[2016-09-29] MEDS ORDERED: CLEOCIN150 MG ORAL (19:47)
[2016-09-29 20:00] VITALS: BP 115/68
[2016-09-29] MEDS ORDERED: NS 55ml IV ONE (20:29)
--- NOTE | 2016-09-30 03:18 | Consultation ---
DATE OF CONSULTATION: 09/29/2016 CONSULTING PHYSICIAN: John Herrera M.D. ATTENDING PHYSICIAN: Dr. Nj REFERRING PHYSICIAN: Dr. Calderón REASON FOR CONSULTATION: Right breast abscess and cellulitis. CHIEF COMPLAINT: The patient's chief complaint coming into the hospital was right breast abscess and cellulitis. HISTORY OF PRESENT ILLNESS: This is a very pleasant 21-year-old female, who is 14 weeks , who also has a history of breast augmentation. The patient was seen by her Dr. Guidry, who noted an abscess of the right breast and as I believe is status post incision, drainage, and debridement. The patient was admitted for IV antibiotics to [facility]. The patient was started on clindamycin, which is category B and should be safe in . She has also been followed by Dr. Guidry and also ROCKET ENGINE MECHANIC, Dr. Dominique . Case was communicated with and he was noted . The patient was on with out improvement and she also had her breast augmentation about 5-1/2 months ago. REVIEW OF SYSTEMS: Constitutional: The patient has generalized weakness, fatigue, fever, and chills. No weight loss. Head And Neck: No thrush, dysphagia, . Cardiac: No chest pain. Gastrointestinal: No nausea, vomiting, or diarrhea. Genitourinary: No dysuria or frequency. Pulmonary: No shortness of breath. Breasts: She does comes in with right breast pain. Skin: No rash. Neurologic: No seizures. PAST MEDICAL HISTORY: Otherwise negative. She is 14 weeks . PAST SURGICAL HISTORY: She had the breast augmentation as discussed earlier about 5-1/2 months ago. ALLERGIES: No known drug allergies. FAMILY HISTORY: Noncontributory. SOCIAL HISTORY: Negative for smoking, alcohol, or drug abuse. MEDICATIONS: Upon reviewing the MAR, the patient is on the following medications: She is on clindamycin, IV fluids, Tylenol, albuterol, Proventil as needed p.r.n. Please see medications in medical order. PHYSICAL EXAMINATION: VITAL SIGNS: The patient's temperature 98.0 degrees, pulse rate 84, respiratory rate 20, blood pressure 132/62, and oxygen saturating 100%. GENERAL: Alert and responsive, in no acute distress. HEAD AND NECK: Oral exam, no thrush. Neck is supple. No JVD. Normocephalic. No facial droop. HEART: Regular. ABDOMEN: Soft. Positive bowel sounds. No rebound. LUNGS: Clear. Bilateral rhonchi or rales. SKIN: No rash. MUSCULOSKELETAL: No effusions. EXTREMITIES: No cyanosis. NEUROLOGIC: Intact. Nonfocal. Alert and oriented x3. BREASTS: Right breast exam was limited. Her right breast wound incision is dry and status covered. There is no obvious cellulitis noted at the right breast. I have reviewed the surgical notes and looks like today is erythema and cellulitis has improved. LABORATORY DATA: White count 6.7, hemoglobin 11.6. Creatinine is 0.6. Wound culture and pending. Blood cultures are negative. Outside wound cultures pending results and creatinine 0.6, white count 6.7, hemoglobin 11.6. Ultrasound of the right breast showed no obvious hematoma or abscess. ASSESSMENT AND PLAN: 1. This is a 21-year-old female, who is 14-weeks , who had right breast abscess and the patient is status post incision and drainage and debridement. The patient was in the hospital for IV antibiotics. The patient currently is on clindamycin, which is category B and should be safe in . I will continue clindamycin staphylococcus aureus and staphylococcus. We will check wound culture results and adjust antibiotics as needed. clindamycin IV for now. surgery follow up. Continue wound care per surgery. Also, of note clindamycin has MRSA courage also. 2. The patient has treatment per Obstetrics and Gynecology. 3. Continue other treatment per . . 4. The patient status post breast augmentation. 5. No known allergies. 6. Case was communicated with . . John Herrera M.D. DR: CHANDLER JOB#: [id number] CC: W[place]ACE
== END 2016-09-29 20:30 | disposition home or self-care (01) | DRG 566 ==
LOC: EMR 17:07 → 4W 17:09 → EDBEDREQ 17:22
DX: O91.112 Abscess of breast associated with pregnancy, second trimester (principal); O91.212 Nonpurulent mastitis associated with pregnancy, second trimester; Z3A.14 14 weeks gestation of pregnancy
CPT/HCPCS: 36415; 76815; 80048; 80053; 80300; 81003; 81025; 83605; 85025; 87040; 87070; 87081; 87205; S0077